=== PATIENT | male | born 1945 | race African-American/Black ===

== ENCOUNTER 2016-11-15 11:09 | Emergency (ER) | payer BC, OTHER ==
[2016-11-15 11:22] VITALS: TEMP 97.6; BMI 23.1
--- NOTE | 2016-11-15 11:23 | PDOC ---
History of Present Illness - General Chief Complaint: Weakness Stated Complaint: WEAK Time Seen by Provider: 11/15/16 11:14 History Source: Patient Exam Limitations: No Limitations - History of Present Illness Initial Comments: 11/15/16 11:35 71y M hx of HIV on HAART, HTN, presents with complaint of generalized weakness. The pt states that he is retired but has been doing alot more recently to make money, mostly general dentist type jobs. This morning he woke up and was feeling generally weak and 'run down', pt states he feels like a 'warm sensation' over his eyes. - he denies any headache, dizziness, vision changes, n/v, cp, palpittions, sob, jeronimo, abd pain, lower extermity swelling, fever/chills, cough, dysuria, hematuria, melena/diarrhea. 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 denies etoh abuse Past History - Past Medical History Allergies/Adverse Reactions: Allergies Allergy/AdvReac Type Severity Reaction Status Date / Time No Known Allergies Allergy Verified 11/15/16 11:22 Home Medications: Ambulatory Orders Atenolol [Tenormin -] 0 mg PO DAILY 11/15/16 Efavirenz/Emtricitab/Tenofovir [Atripla -] 1 tab PO DAILY 11/15/16 HTN: Yes HIV: Yes Other medical history: back problems - Psycho/Social/Smoking Cessation Hx Suicidal Ideation: No Smoking History: Former smoker Have you smoked in the past 12 months: No If you are a former smoker, when did you quit?: 15 years ago Information on smoking cessation initiated: No Review of Systems - Review of Systems Able to Perform ROS?: Yes Comments:: 11/15/16 11:40 Constitutional - +general weakness no reported Fever, Chills, HEENT: no reported vision changes, sore throat Respiratory: no reported cough, sob, hemoptysis Cardiac: no reported chest pain, palpitations, light headedness, leg swelling Abd/GI: no reported abd pain, nausea, vomiting, blood per rectum, melena, diarrhea : no reported dysuria, frequency, discharge Musculskelatal - no reported back pain, joint swelling skin - no reported bruising, erythema, rash neurological: no reported headache, numbness, focal weakness, tingling, ataxia, hematologic: no reported anemia, easy bruising, easy bleeding *Physical Exam - Vital Signs Last Vital Signs Temp Pulse Resp BP Pulse Ox 97.6 F 52 L 18 142/92 98 11/15/16 11:18 11/15/16 11:18 11/15/16 11:18 11/15/16 11:18 11/15/16 11:18 - Physical Exam Comments: 11/15/16 11:40 GENERAL: The patient is awake, alert, and fully oriented, Nontoxic - in no acute distress. HEAD: Normocephalic, atraumatic. EYES: extraocular movements intact, sclera anicteric, conjunctiva clear. ENT: Normal voice, Moist mucous membranes. NECK: Normal range of motion, supple LUNGS: Breath sounds equal, clear to auscultation bilaterally. No wheezes, no rhonchi, no rales. HEART: Regular rate and rhythm, normal S1 and S2 without murmur, rub or gallop. ABDOMEN: Soft, nontender, normoactive bowel sounds. No guarding, no rebound. . No CVA tenderness EXTREMITIES: Normal range of motion, no edema. No clubbing or cyanosis. No cords, erythema, or tenderness. NEUROLOGICAL: No facial assymetry, Normal speech, PSYCH: Normal mood, normal affect. SKIN: Warm, Dry, normal turgor, Heart Score/ECG Review - ECG Impressions Comment:: 11/15/16 11:41 Twelve-lead EKG was performed and reviewed by me. There is normal sinus rhythm with a rate of 51 The axis is normal. The intervals are normal. There is normal R wave progression There are no ST or T wave abnormalities. Impression: sinus bradycardia ED Treatment Course - LABORATORY CBC & Chemistry Diagram: 11/15/16 11:55 11/15/16 11:55 Medical Decision Making - Medical Decision Making 11/15/16 11:44 71y M hx ofhiv on HAART (unkonwn cd4, VRL undetectable), htn, presents with complaing of general weaknes w/o any other focal complaints nor focal finding son exam. will r/o anemia, metabolic dernagement, occult infection ekg to scren for acs will give pt a L of NS will reassess 11/15/16 12:48 labs reviewed unremrakable pt feeling improved will dc the pt with pmd fu and further evaluation pt has an appointment with his doc at [facility] on wednesday. return precautions were discussed I discussed the physical exam findings, ancillary test results and final diagnoses with the patient. I answered all of the patient's questions. The patient was satisfied with the care received and felt comfortable with the discharge plan and treatment plan. The patient will call their primary care physician within 24 hours to arrange follow-up and will return to the Emergency Department with any new, persistent or worsening symptoms. *DC/Admit/Observation/Transfer Diagnosis at time of Disposition: Fatigue Qualifiers: Fatigue type: unspecified Qualified Code(s): R53.83 - Other fatigue - Discharge Dispostion Disposition: HOME Condition at time of disposition: Improved Admit: No - Referrals Referrals: [facility] [Provider Group] - Patient Instructions Printed Discharge Instructions: DI for Fatigue Additional Instructions: Return to the emergency department immediately with ANY new, persistent or worsening symptoms. You MUST call and follow up with your doctor at the [facility] as scheduled on wednesday for further evaluation of your symptoms. Results were discussed with you. Please make sure your doctor reviews the results of your emergency evaluation. Print Language: SYRIAC
[2016-11-15] MEDS ORDERED: SODIUM CHLORIDE 1,000 ML IV ONE (11:34)
[2016-11-15 12:06] LABS: URINE APPEARANCE CLEAR; URINE BILIRUBIN NEGATIVE (NEGATIVE); URINE BLOOD NEGATIVE (NEGATIVE); URINE COLOR STRAW; URINE GLUCOSE (UA) NEGATIVE (NEGATIVE); URINE KETONE NEGATIVE (NEGATIVE); URINE LEUK ESTERASE NEGATIVE (NEGATIVE); URINE NITRITE NEGATIVE (NEGATIVE); URINE PROTEIN NEGATIVE (NEGATIVE); URINE UROBILINOGEN NEGATIVE E.U./dl (0.2-1.0)
[2016-11-15 12:10] LABS: BASOPHIL 0.9 % (0-2.0); EOSINOPHIL 2.6 % (0-4.5); MCHC 32.2 g/dl (32.0-35.9); MEAN CELL VOLUME 93.4 fl (80-96); MEAN PLT VOLUME 7.8 fl (7.5-11.1); NEUTROPHILS 49.1 % (42.8-82.8); PLATELET COUNT 187 K/MM3 (134-434); RDW 12.4 % (11.9-15.9)
[2016-11-15 12:27] LABS: ALBUMIN 3.8 g/dl (3.4-5.0); ALK PHOS 74 U/L (45-117); ANION GAP 11 (8-16); BILIRUBIN,TOTAL 0.2 mg/dL (0.2-1.0); CO2 24 mmol/L (21-32); COCKROFT - GAULT 82.74; GLUCOSE,RANDOM 79 mg/dL (74-106); SGOT/AST 29 U/L (15-37); SGPT/ALT 26 U/L (12-78); TOT PROT 7.5 g/dl (6.4-8.2)
[2016-11-15 12:57] VITALS: BP 137/89; PULSE 57
--- NOTE | 2016-11-16 13:39 | EKG ---
Test Reason : Blood Pressure : / mmHG Vent. Rate : 051 BPM Atrial Rate : 051 BPM P-R Int : 200 ms QRS Dur : 092 ms QT Int : 436 ms P-R-T Axes : 039 -08 040 degrees QTc Int : 401 ms SINUS BRADYCARDIA OTHERWISE NORMAL ECG WHEN COMPARED WITH ECG OF 05-SEP-2008 12:55, NO SIGNIFICANT CHANGE WAS FOUND Confirmed by PERCY SANDERSON MD ([id number]) on 11/16/2016 1:38:56 PM Referred By: Confirmed By:PERCY SANDERSON MD
== END 2016-11-15 12:57 | disposition home or self-care (01) ==
LOC: JER 11:09
PROC: 3E0337Z Introduction of Electrolytic and Water Balance Substance into Peripheral Vein, Percutaneous Approach (ICD-10-PCS; principal; 2016-11-15)
DX: R53.83 Other fatigue (principal); I10 Essential (primary) hypertension; Z21 Asymptomatic human immunodeficiency virus [HIV] infection status
CPT/HCPCS: 36415; 71010-TC; 80053; 81003; 85025; 93005; 93010; 96360; 99283-25